=== PATIENT | male | born 1990 | race Caucasian/White ===

== ENCOUNTER 2022-07-08 09:20 | Emergency (ER) | payer BC, OTHER ==
[2022-07-08] MEDS ORDERED: Lidocaine/Epineph/Tetracaine 3 ML Syringe TOP ONE (09:37)
[2022-07-08] MEDS ORDERED: Bacitracin Oint 1 GM U/D Packet TOP ONE (10:20)
== END 2022-07-08 10:34 | disposition home or self-care (01) ==
LOC: MW.ED 09:20
DX: S01.81XA Laceration without foreign body of other part of head, initial encounter (principal); W22.8XXA Striking against or struck by other objects, initial encounter; Y93.01 Activity, walking, marching and hiking
CPT/HCPCS: 99283; A9270

== ENCOUNTER 2022-09-20 19:48 | Emergency (ER) | payer BC, OTHER | END 2022-09-20 21:02 | disposition home or self-care (01) | LOC: MW.ED 19:48 | DX: L02.416 Cutaneous abscess of left lower limb (principal) | CPT/HCPCS: 99282 ==